=== PATIENT | female | born 1950 | race Caucasian/White ===

== ENCOUNTER 2021-09-30 11:00 | Emergency (ER) | payer OTHER, MEDICAID, SELFPAY ==
--- NOTE | ~2021-09-30 | XR_ITS ---
XR chest 2V DATE: 09/30/2021 11:31 INDICATION: Congestion and fever TECHNIQUE: 2 views COMPARISON: 03/01/2019 2 view chest FINDINGS: Bilateral hyperinflation suggesting obstructive airways disease. There are infiltrate or co nsolidation, pleural effusion or pulmonary vascular congestion or pneumothorax is detected. Normal heart size. No hilar or mediastinal enlargement is noted Diffuse osteopenia. Mild thoracic dextroscoliosis and degenerative spurring. IMPRESSION: Bilateral hyperinflation suggesting COPD Reviewed, dictated and finalized at location A.
--- NOTE | 2021-09-30 11:01 | ED.URI ---
HPI - URI/Sore Throat General Chief Complaint: Upper Respiratory Infection Stated Complaint: Sore Throat,Runny Nose Time Seen by Provider: 09/30/21 11:08 Source: patient, family, RN notes reviewed and old records reviewed Mode of arrival: ambulatory Limitations: no limitations History of Present Illness HPI Narrative: 71-year-old female presents to the [facility] with 3 days of extreme fatigue, fever, cough, chest congestion. Patient is COVID vaccinated but does not believe in getting the flu vaccine. Patient appears acutely ill but nontoxic. MD elicited complaint: sore throat and rhinorrhea Related Data Home Medications Medication Instructions Recorded Confirmed alprazolam 2 mg PO DIRECTED 09/30/21 09/30/21 amlodipine 2.5 mg PO DAILY 09/30/21 09/30/21 bupropion HCl 150 mg PO BID 09/30/21 09/30/21 duloxetine 60 mg PO DAILY 09/30/21 09/30/21 estradiol [Imvexxy Maintenance 1 mcg VAGINAL DIRECTED 09/30/21 09/30/21 Pack] gabapentin 300 mg PO DIRECTED 09/30/21 09/30/21 rosuvastatin 5 mg PO DAILY 09/30/21 09/30/21 varenicline [Tyrvaya] 1 spray INTRANASAL DIRECTED 09/30/21 09/30/21 Allergies Allergy/AdvReac Type Severity Reaction Status Date / Time amoxicillin Allergy Unknown RASH, Verified 09/30/21 11:04 MIGRAINE, VOMITING moxifloxacin Allergy Unknown MIGRAINE Verified 09/30/21 11:04 HEADACHE Review of Systems Review of Systems: All systems reviewed & are unremarkable except as noted in HPI and below Constitutional: Constitutional: Reports as per HPI, Reports chills, Reports fatigue, Reports fever(s) and Denies headache(s) Eyes: Eyes: Reports no additional eye complaints ENT: Reports as per HPI, Denies vertigo, Denies dizziness, Denies headache(s), Denies nasal congestion and Denies sore throat Cardiovascular: Cardiovascular: Reports no additional cardiovascular complaints, Denies chest pain, Denies syncope, Denies rapid heart rate and Denies dyspnea Respiratory: Respiratory: Reports as per HPI, Reports chest congestion, Reports cough, Denies dyspnea and Denies wheezing Gastrointestinal: Gastrointestinal: Reports no additional gastrointestinal complaints, Denies abdominal pain, Denies diarrhea, Denies nausea and Denies vomiting Musculoskeletal: Musculoskeletal: Reports no additional musculoskeletal complaints, Denies back pain and Denies numbness Integumentary/Breasts: Skin/Breast: Reports system reviewed and no additional complaints, except as docu Neurologic: Reports system reviewed and no additional complaints, except as documented, Denies vertigo, Denies dizziness, Denies syncope, Denies headache(s), Denies focal weakness and Denies numbness Psychiatric: Psychiatric: Reports no additional psychiatric complaints Allergic/Immunologic: Allergic/Immunologic: Reports no additional allergic/immunologic complaints and Denies wheezing PMFSH Past Medical History Medical History (Updated 09/30/21 @ 15:58 by Edwina Mueller APRN) Anxiety and depression High cholesterol History of high blood pressure Family History Family History Father Cerebrovascular accident Grandparent Cerebrovascular accident Social History Social History Smoking status: Never smoker Alcohol intake: never Gender identity (if verbalized by the patient): Female Comments At the time of my signature, I reviewed and agree with the nursing past medical, surgical, social, and family history. There is no relevant family history pertinent to the patient complaint. Exam Const: General: cooperative, no acute distress, well developed, alert and ill appearing (Acute on chronic) acutely and chronically Nutritional Appearance: well nourished Orientation/consciousness: patient oriented x3 Limitations: no limitations HENMT: Head: normal to inspection Ears: external ears normal, TM's normal bilaterally and EAC
[2021-09-30 11:09] VITALS: BP 145/74; PULSE 113; RESP 16; TEMP 37.9; O2SAT 95
[2021-10-02 14:40] LABS: SARS-CoV-2 RNA PCR Negative
== END 2021-09-30 12:07 | disposition home or self-care (01) ==
PROVIDERS: Emergency Provider Nurse Practitioner; PCP Family Medicine
DX: J40 Bronchitis, not specified as acute or chronic (principal); F41.8 Other specified anxiety disorders
CPT/HCPCS: 71046; 87426; 87804; 99213; C9803; G0463; U0003; U0005